=== PATIENT | female | born 1970 | race Caucasian/White ===

== ENCOUNTER → 2016-10-23 | Outpatient (CLI) | payer OTHER ==
--- NOTE | 2016-11-10 10:18 | KCIC ---
Bilateral digital screening mammograms with CAD: HISTORY Routine screening. COMPARISON Comparison is made to previous study dated 06/10/2014. FINDINGS Breast density category B. The skin and nipples show no abnormalities. No abnormal lymph nodes are seen in the axilla. The breast parenchyma shows scattered fibroglandular density. There appears to be some focally increasing parenchymal density in the lower outer quadrant of the right breast anteriorly and at approximately the 3 o'clock B position of the left breast. Recommend further evaluation with additional coned compression views and ultrasound. There are no other dominant masses, suspicious calcifications or architectural distortions. IMPRESSION Focally increased areas of nodular parenchymal density in the lower outer quadrant of the right breast anteriorly and at approximately the 3 o'clock B position of the left breast. Recommend further evaluation with additional views and ultrasound. BI-RADS category 0: Incomplete. Additional imaging is recommended. This study was interpreted with the benefit of Computerized Aided Detection (CAD). Mammography is not 100% sensitive in detecting breast cancer. Therefore, a self breast exam and a clinical breast exam are very important. A negative mammogram does not negate a clinically suspicious finding and should not result in a delay in biopsying a clinically suspicious abnormality. This patient's information has been entered into a reminder system for the patient to be notified with the results of this examination and a target date for her next mammograms. Electronically signed by: Elham Yeager MD (Nov 10, 2016 10:16:07)
== END | disposition home or self-care (01) ==
LOC: KCIC MAMMO 07:51
PROVIDERS: ATTEND Family Medicine
DX: Z12.31 Encounter for screening mammogram for malignant neoplasm of breast (principal)
CPT/HCPCS: 77052; G0202; 77067

== ENCOUNTER → 2016-11-17 | Outpatient (CLI) | payer OTHER ==
--- NOTE | 2016-11-17 09:26 | RAD ---
DATE: November 17, 2016 EXAM: DIGITAL DIAGNOSTIC BILATERAL, BREAST LEFT SONOGRAM HISTORY: Increasing nodular density of the 3:00 position of the left breast and increase in density of the lower outer quadrant of the right breast seen on screening mammogram. COMPARISON: October 23, 2016 performed at [facility] and mammogram dated June 10, 2014 performed at [facility] This study was interpreted with the benefit of Computerized Aided Detection (CAD). BILATERAL DIAGNOSTIC MAMMOGRAPHIC FINDINGS: Focal digital compression views left breast in the CC and MLO projections were performed. The previously seen nodular density of the 3 clock position left breast compresses out somewhat consistent with benign finding. However there is a small residual density still present. Therefore, sonography will be performed to ensure no lesion is present here. Focal digital compression views of the inferior lateral aspect of the right breast were performed. The previously seen asymmetric nodular density resolves with compression views consistent with benign finding. LEFT BREAST SONOGRAPHY: High-resolution sonography of the lateral one half of the left breast from the 12:00 to 6:00 position was performed. No focal sonographic abnormality is seen. This confirms benign finding on diagnostic mammography. IMPRESSION: Benign findings of both breasts. Recommend routine screening mammography in one year. BI-RADS CATEGORY: 2 BENIGN FINDING RECOMMENDED FOLLOW-UP: 12M 12 MONTH FOLLOW-UP PQRS compliance statement: Patient information was entered into a reminder system with a target due date October 24, 2017 for the next mammogram. Mammography is a sensitive method for finding small breast cancers, but it does not detect them all and is not a substitute for careful clinical examination. A negative mammogram does not negate a clinically suspicious finding and should not result in delay in biopsying a clinically suspicious abnormality. "Our facility is accredited by the [employer] Mammography Program."
== END | disposition home or self-care (01) ==
LOC: MAMMO 08:14
PROVIDERS: ATTEND Family Medicine
DX: R92.8 Other abnormal and inconclusive findings on diagnostic imaging of breast (principal)
CPT/HCPCS: 76641; G0204; 77066

== ENCOUNTER → 2017-02-12 | Outpatient (CLI) | payer OTHER ==
--- NOTE | 2017-02-12 10:53 | KCIC ---
Examination: Ultrasound abdomen complete and pelvis. HISTORY History of aversion to food, internal inflammation, abdominal discomfort, bloating COMPARISON None available Findings: The visualized pancreas grossly appears unremarkable. The echogenicity of the liver grossly appears unremarkable. The right lobe of the liver measures 14.9 centimeters. The visualized aorta, IVC appear patent. The common bile duct could not be identified. The gallbladder is not identified likely prior cholecystectomy. The spleen measures 9 centimeters. The uterus measures 10.0 x 5.8 x 5.4 centimeters. The endometrium measures 7 millimeters in thickness. The right ovary measures 2.3 x 1.7 x 1.5 centimeters. The left ovary measures 3.6 x 3.5 x 2.8 centimeters. Blood flow identified in the right and left ovaries. There is a cystic structure identified in the left ovary measuring 2.3 x 2.4 x 2.1 centimeters. Impression: 1.2.3 centimeter cystic structure identified in the left ovary could be a cyst or follicle. Otherwise unremarkable visualized exam. Electronically signed by: Yohan Camacho (February 12, 2017 10:39:47)
== END | disposition home or self-care (01) ==
LOC: KCIC US 08:05
PROVIDERS: ATTEND Family Medicine
DX: R63.3 Feeding difficulties (principal); R10.9 Unspecified abdominal pain; R14.0 Abdominal distension (gaseous)
CPT/HCPCS: 76700; 76856